=== PATIENT | female | born 1970 | race Caucasian/White ===

== ENCOUNTER → 2017-01-02 | Outpatient (CLI) | payer OTHER | LOC: BMCIMAGING 13:33 | PROVIDERS: ATTEND Obstetrics & Gynecology | DX: Z12.31 Encounter for screening mammogram for malignant neoplasm of breast (principal) | CPT/HCPCS: G0202 ==

== ENCOUNTER 2017-03-02 06:26 | Observation (INO) | payer OTHER ==
--- NOTE | 2017-01-28 12:51 | GHP ---
[f rep st] PREOP HISTORY AND PHYSICAL DATE OF ADMISSION: 03/02/2017 TIME OF SURGERY: 7:15 a.m. SURGERY TO BE PERFORMED: Total laparoscopic hysterectomy, bilateral salpingectomy. PREOPERATIVE DIAGNOSIS: Symptomatic uterine fibroids. HISTORY OF PRESENT ILLNESS: Patient is a 46-year-old, 3, para 2-0-1-2, with an unknown last menstrual because of her Mirena IUD, who was discovered to have a large posterior uterine fibroid w hich has grown in size over the past couple years. Her ultrasound revealed a right intramural uteri ne fibroid that was 7.5 x 5.2 x 6.07 cm. This was discovered on ultrasound as an evaluation after h er Mirena IUD was changed and the insertion was difficult and there was felt to be an obtrusive mass . In retrospect, patient has noted some increasing back and leg pain over the past several years an d feels that she has bulk symptoms in her pelvis which may likely be a result of this increasing siz e of this uterine fibroid. Patient has no episodes of vaginal bleeding. She has had a Mirena IUD f or years and does not have periods, and she denies any other symptoms. We discussed treatment optio ns for uterine fibroids including uterine artery embolization, medical management versus surgical ma nagement. Patient is aware that uterine fibroids can recur and feels that the bulk symptoms are inc reasingly giving her difficulties in her life. She desires to have definitive management with a tot al laparoscopic hysterectomy. We discussed bilateral salpingectomy as well to attempt to prevent an y possible ovarian malignancy in the future without compromising her natural hormones and she agrees to this as well. PAST MEDICAL HISTORY: Only significant for history of depression, bulimia, and OCD. She has been o n Lexapro for many years and feels that her symptoms are well controlled with this. 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 SURGICAL HISTORY: Her only surgical history is the tonsils and adenoidectomy at age 7. PAST OBSTETRICAL HISTORY: She has had 3 pregnancies. In April of 1998, she had a viable female, 7 pounds 11 ounces, vaginal delivery without complication. She had an early miscarriage without a D and C, and then in August of 2001, she had a viable male, 7 pounds, 14 ounces, vaginal delivery wit hout complications. ALLERGIES: She is allergic to penicillin, it gives her hives. MEDICATIONS: Her only medications include Lexapro 10 mg daily, which she has been on for many years . PAST GYNECOLOGICAL HISTORY: She had a normal menarche at age 12-13. She had rather irregular cycle s until her Mirena was placed after the of her son. She does not have any as of now. She had 1 abnormal Pap. Followup Paps were normal. Most recent Pap in November of 2016 was all normal. She h as never had any treatment on her cervix, and she denies any history of any STDs. SOCIAL HISTORY: She is . She lives with her and her son. Her daughter has recently gone to college. They just moved to [place] for approximately 1-2 years. 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 She denies tobacco, alcohol, and drug use. She does have a house at [place] and is coming back f or her surgery. FAMILY HISTORY: Her father had cancer of the nasopharynx. Her mother had a history of CLL. She is adopted, they do not know her family history on that side. Paternal grandfather had colon cancer. Paternal grandmother had of a brain aneurysm in her 40s. No other medical problems and her ch ildren are healthy. REVIEW OF SYSTEMS: Negative except for symptoms as mentioned above in HPI. OBJECTIVE: VITAL SIGNS: Today, her weight is 124 pounds, blood pressure is 104/62. GENERAL: She is a well-developed thin white female in no acute distress. LUNGS: Clear to auscultation bilateral ly. HEART: Regular rate and rhythm. No murmurs. ABDOMEN: Soft, nontender, nondistended. Normal bowel sounds. PELVIC: Normal external genitalia. Normal parous cervix. Mirena IUD strings are v isible at the level of the cervix. Her uterus is bulky and there is a firm fibroid that is palpable on the right side, which does protrude into her sacrum and feels like it is associated with back pa in. ASSESSMENT AND PLAN: A 46-year-old, 3, para 2-0-1-2, with symptomatic uterine fibroids. De sires total laparoscopic hysterectomy and bilateral salpingectomy. Patient was consented for the pr ocedure today. She understood the risks and benefits. The risks including bleeding, infection, dam age to internal organs, tubes, ovaries, bowel, bladder, nerves, blood vessels, ureters, need for ope n procedure, need for additional procedures. She understood these risks and benefits and agreed to proceed. /[id number]/MODL
[2017-03-02] MEDS ORDERED: LIDOCAINE 1% 2 ML INJ ID PRN (06:42)
[2017-03-02] MEDS ORDERED: LR 1,000 ML IV ONE (06:42)
[2017-03-02] MEDS ORDERED: BUPIVACAINE 0.5% 30 ML SDV ONE (07:09)
[2017-03-02] MEDS ORDERED: PROPOFOL/EMULSION 500 MG/50 ML BOTTLE IV ONE ×2 (07:12→09:22)
[2017-03-02] MEDS ORDERED: fentaNYL 100 MCG/2 ML INJ ONE ×3 (07:12→11:02)
[2017-03-02] MEDS ORDERED: MIDAZOLAM 2 MG/2 ML VIAL IVP ONE (07:23)
--- NOTE | 2017-03-02 07:25 | PDANEPAE ---
ANE History of Present Illness 46 year old woman for hysterectomy for fibroids. Otherwise healthy. ANE Past Medical History - Cardiovascular History Hx Hypertension: No Hx Arrhythmias: No Hx Chest Pain: No Hx Coronary Artery / Peripheral Vascular Disease: No Hx CHF / Valvular Disease: No Hx Palpitations: No - Pulmonary History Hx COPD: No Hx Asthma/Reactive Airway Disease: No Hx Recent Upper Respiratory Infection: No Hx Oxygen in Use at Home: No Hx Sleep Apnea: No Sleep Apnea Screening Result - Last Documented: Negative - Neurologic History Hx Cerebrovascular Accident: No Hx Seizures: No Hx Dementia: No Neurologic History Comment: MIGRAINES YRS AGO-MENSTRUAL - Endocrine History Hx Diabetes: No - Renal History Hx Renal Disorders: No - Liver History Hx Hepatic Disorders: No - Neurological & Psychiatric Hx Hx Neurological and Psychiatric Disorders: No - Cancer History Hx Cancer: No - Congenital Disorder History Hx Congenital Disorders: No - GI History Hx Gastrointestinal Disorders: No - Other Health History Other Health History: NEG - Chronic Pain History Chronic Pain: No - Surgical History Prior Surgeries: TONSILLECTOMY. ADENOIDECTOMY ANE Review of Systems Review of Systems: - Exercise capacity METS (RN): 6 METS ANE Patient History - Allergies Allergies/Adverse Reactions: Penicillins Allergy (Intermediate, Verified 12/14/10 11:15) Rash - Home Medications Home Medications: Cetirizine [ZyrTEC 10 mg (*)] 10 mg PO DAILY PRN 03/02/17 [Last Taken Unknown] Escitalopram Oxalate [Lexapro] 10 mg PO DAILY 03/02/17 [Last Taken 03/01/17 07: 00] - NPO status NPO Since - Liquids (Date): 03/01/17 NPO Since - Liquids (Time): 20:30 NPO Since - Solids (Date): 03/01/17 NPO Since - Solids (Time): 18:30 - Smoking Hx Smoking Status: Never smoked - Family Anes Hx Family Hx Anesthesia Complications: NEG ANE Labs/Vital Signs - Vital Signs Blood Pressure: 112/72 Heart Rate: 65 Respiratory Rate: 16 O2 Sat (%): 96 Height: 171.45 cm Weight: 56.699 kg ANE Physical Exam - Airway Mallampati Score: Class 1 - Pulmonary Pulmonary: no respiratory distress - Cardiovascular Cardiovascular: regular rate and rhythym - ASA Status ASA Status: I
[2017-03-02] MEDS ORDERED: CLINDAMYCIN 900 MG/DEXTROSE/50 ML BAG IV ONE (07:41)
[2017-03-02] MEDS ORDERED: CLINDAMYCIN 900 MG/DEXTROSE 50 ML IV ONE (07:41)
[2017-03-02] MEDS ORDERED: NALOXONE HCL 0.4 MG/ML INJ IVP PRN ×2 (08:19→10:39)
[2017-03-02] MEDS ORDERED: HYDROmorphONE/DILAUDID 1 MG/ML INJ IVP PRN (08:19)
[2017-03-02] MEDS ORDERED: OXYCODONE/APAP 5/325 TAB PO PRN (08:19)
[2017-03-02] MEDS ORDERED: PROMETHAZINE HCL 25 MG/ML INJ IVP PRN (08:19)
[2017-03-02] MEDS ORDERED: DEXAMETHASONE 4 MG/ML VIAL IVP PRN (08:19)
[2017-03-02] MEDS ORDERED: LR 500 ML IV PRN (08:19)
[2017-03-02] MEDS ORDERED: LABETALOL HCL 50 MG/10 ML SYR IVP PRN (08:19)
[2017-03-02] MEDS ORDERED: ALBUTEROL 3 ML DEYVIAL IH PRN (08:19)
[2017-03-02] MEDS ORDERED: ACETAMINOPHEN 500 MG TAB PO PRN (08:19)
[2017-03-02] MEDS ORDERED: HYDROCODONE/APAP 5/325 TAB PO PRN (08:19)
[2017-03-02] MEDS ORDERED: LACTULOSE 20 GM/30 ML UDCUP PO PRN (10:38)
[2017-03-02] MEDS ORDERED: POLYETHYLENE GLYCOL 3350 17 GM PKT PO PRN (10:38)
[2017-03-02] MEDS ORDERED: MAGNESIUM HYDROXIDE 30 ML UDCUP PO PRN (10:38)
[2017-03-02] MEDS ORDERED: BISACODYL 10 MG SUPP PR PRN (10:38)
[2017-03-02] MEDS ORDERED: HYDROmorphONE/DILAUDID 6 MG/30 ML PCA IV PRN (10:39)
--- NOTE | 2017-03-02 10:41 | POSTOPPROG ---
Post Op Note Date of Operation: 03/02/17 Surgeon: Veda Ortega Compliance Quality Performance Analyst: Dr Shea Tavarez Anesthesiologist: Dr Dorothy Nuñez Anesthesia: GET(General Endotracheal) Pre-op Diagnosis: symptomatic uterine fibroids Post-op Diagnosis: same Procedure: TLH B salpingectomy Findings: uterus with large subserosal fibroid on right posterior aspect of uterus Inf/Abcess present in the surg proc area at time of surgery?: No Depth: Organ Space EBL: 50-100 Total fluids administered: 2000 Specimen(s): uterus with cervix and bilateral fallopian tubes
--- NOTE | 2017-03-02 10:51 | POSTANESTH ---
Post Anesthetic Evaluation Respiratory Status: Normal, Stable Level of Consciousness/Mental Status: Can Participate in Eval Pain Control: Adequate, Prn Tx Ordered Nausea/Vomiting Control: Adequate, Prn Tx Ordered Complications Possibly Related to Anesthesia: None Noted
[2017-03-02] MEDS ORDERED: LR 1,000 ML IV SCH (11:00)
[2017-03-02] MEDS: fentaNYL 100 MCG/2 ML INJ IVP PRN ×2 (11:03→11:13)
--- NOTE | 2017-03-02 11:58 | GOP ---
[f rep st] OPERATIVE REPORT DATE OF OPERATION: 03/02/2017 SURGEON: Veda Ortega MD CODING CONSULTANT: Shea Tavarez DO ANESTHESIA: General. ANESTHESIOLOGIST: Edyta Nuñez MD. PREOPERATIVE DIAGNOSIS: Symptomatic uterine fibroids. POSTOPERATIVE DIAGNOSIS: Symptomatic uterine fibroids. PROCEDURE PERFORMED: Total laparoscopic hysterectomy, bilateral salpingectomy. FINDINGS: Uterus with large uterine fibroid and bilateral fallopian tubes. These will be sent to Pathology. ESTIMATED BLOOD LOSS: For the procedure was less than 50 cc. INDICATIONS: The patient is a 46-year-old, 3, para 2-0-1-2, who has a Mirena IUD, and therefore, an unknown last menstrual period. She presented as a normal followup to change her Mirena IUD, and during that procedure, there was felt to be obstruction in the uterine cavity and the cavity was distorted by a mass. Pelvic ultrasound revealed a large uterine fibroid to the right intramural aspect of the uterus that was 7.5 x 5.2 x 6.7 cm, was disorientating her uterine cavity. The patient had had a prior ultrasound 2 years prior that showed the fibroid was much smaller, in the 2-3 cm range. The patient began considering her symptoms and she has been having pelvic bulk symptoms and pressure, including back pain and significant right hip pain, which is felt to be likely due to the expanding size of the uterine fibroid. We discussed treatment options and the patient wished to have definitive therapy with a total laparoscopic hysterectomy, bilateral salpingectomy. She was consented for the procedure and understood the risks and benefits, the risks including bleeding, infection, damage to internal organs, ovaries, bowel, bladder, nerves , blood vessels, ureters, need for open procedure, need for additional procedures. She understood these risks and benefits, agreed to proceed. DESCRIPTION OF PROCEDURE: The patient was taken to the operating room where she was placed under general anesthesia without difficulty. She was prepped and draped in the dorsal lithotomy position and a Resendiz catheter was placed in her bladder. An exam under anesthesia revealed a large bulky uterine fibroid that was palpable to the right of her normal uterus and cervix, no other masses. After a WHO time-out was performed, an open-sided speculum was placed in the vagina, and a Bassett tenaculum was used to grasp the anterior lip of the cervix. The uterus sounded to 8 cm, and the cervix was felt to be medium size. The THEE uterine manipulator was then set up with the 8 cm uterine sound and the medium cervical cap. The cervix was progressively dilated with Crane dilators to a #7. The THEE uterine manipulator was gently advanced into the endometrial canal and the balloon was inflated. The tenaculum was then removed and the cervical cap was then advanced around the cervix and uterine manipulator was placed. Attention was then turned to the abdominal portion of the procedure, and after injection of Marcaine, a 5 mm skin incision was then made with a scalpel, and a Veress needle was applied through the peritoneum. Pneumoperitoneum was then created with carbon dioxide gas and a 5 mm atraumatic trocar was placed through that incision under direct visualization. After injection of Marcaine, a 5 mm atraumatic trocar was placed in the right lower quadrant and a 10 mm atraumatic trocar was placed in the left lower quadrant, all under direct visualization without difficulty. Inspection of the pelvis revealed the uterus to have a large fibroid attached to the right aspect of the uterus through the broad ligament distorting the round ligament and the utero-ovarian ligament and the ovary on the right side. The uterus was normal on the left. The tubes and ovaries were normal and the rest of the anatomy was normal. The uterus was then flexed to the right side of the pelvis, and the left fallopian tube was grasped with an atraumatic grasper and dissection of the fimbria and along the mesosalpinx was performed with LigaSure. The fallopian tube was then transected at the level of the cornual region of the uterus and removed through the 10 mm port. The round ligament was then grasped, cauterized and cut, as well as the utero-ovarian ligament and dissection was performed along the cardinal ligaments on the left aspect of the uterus until the uterine vessels were identified and cut after dissection of the broad ligament and creation of the vesicouterine peritoneum and the bladder flap. The bladder was dissected anteriorly. The uterine vessels were identified, cauterized and cut, and along with care to feel the cervical cup around the cervix from the vagina. Attention was then turned to the right side of the uterus where the right fallopian tube was grasped at the fimbriated end. The right fallopian tube was cauterized and cut along the mesosalpinx and transected and removed directly through the 10 mm port. The right aspect of the uterus was distorted by the uterine fibroid, so the utero-ovarian ligament was grasped, cauterized and cut with the LigaSure and the anterior portion of the bladder flap was carried over the fibroid capsule to further identify and transect the tissue laterally. The round ligament was cauterized and cut and the fibroid was shelled out of the broad ligament with direct blunt dissection as well as sharp dissection with care to reflect the ovary and the vessels laterally. We also inspected that side carefully to see the right ureter and make sure that it was properly located in the pelvic wall. The fibroid was then grasped with a tenaculum and care was taken to identify the uterine vessels underneath the fibroid and they were dissected off at the level of the internal cervical os with care to feel the cervical cap for the colpotomy. This was all performed with direct dissection with the LigaSure and good hemostasis was assured. The uterus was then again deflected to the right and the balloon was inflated on the THEE to capture the pneumoperitoneum, and the hook monopolar cautery was used on the LigaSure device to create the colpotomy on the anterior left and posterior sides of the cervix. We had difficulty with the pneumoperitoneum and visualization because of the right fibroid on the right side of the colpotomy. Therefore, we deflated the pneumoperitoneum and converted to a vaginal approach. The weighted speculum and a Campuzano retractor were used for visualization and the cervix was grasped with a tenaculum. There was a small area of the vaginal cuff still attached. This was grasped with a Michael clamp, cut and suture ligated with 0 Vicryl and good hemostasis was assured. The uterus and fibroid were removed in 1 piece vaginally without difficulty. A sterile glove with a lap sponge were then placed vaginally to recreate our pneumoperitoneum and we converted back to laparoscopic approach. The pelvis was copiously irrigated with warm normal saline and there was good hemostasis along all the surgical margins. The vaginal cuff was then closed with the VCare 0 Vicryl barbed suture from right to left with 2 redundant sutures to the midline. This was performed without difficulty and the cuff was closed directly. Inspection of the pelvis again assured hemostasis. The appendix was visualized as well as the liver and the gallbladder. There was normal anatomy throughout the pelvis and the ovaries were retained and were normal and both ureters were visualized peristalsing at the end of the case. The pneumoperitoneum was then allowed to escape. The 1 cm trocar incision fascia was closed with 0 Vicryl and the skin was closed with 4-0 Monocryl on all 3 ports. Steri-Strips were placed. The patient tolerated the procedure well. Sponge, lap, needle, and instrument counts were correct x3. Patient went to the recovery room in good condition. FLUID REPLACEMENT: 2000 cc. URINE OUTPUT: 150 cc. /[id number]/MODL MTDD
[2017-03-02] MEDS: KETOROLAC 30 MG/1 ML SDV IVP PRN ×2 (12:06→18:27)
--- NOTE | 2017-03-02 12:12 | GHP ---
[f rep st] PREOP HISTORY AND PHYSICAL DATE OF ADMISSION: 03/02/2017 ADDENDUM TO PREVIOUSLY DICTATED HISTORY AND PHYSICAL: DATE OF SURGERY: 03/02/2017 PREOPERATIVE DIAGNOSIS: Symptomatic uterine fibroids. PROCEDURE TO BE PERFORMED: Total laparoscopic hysterectomy, bilateral salpingectomy. HISTORY OF PRESENT ILLNESS: The patient is a 46-year-old, 3, para 2-0-1-[address] menstrual period because she has a Mirena IUD, who was discovered to have a large posterior uterin e fibroid which has grown in size over the last few years. Most recent ultrasound revealed a right in tramural uterine fibroid which was 7.5 x 5.2 x 6.7 cm. This was discovered on an ultrasound as an pamella luation for her Mirena IUD because as it was changed the insertion was difficult and was felt to have an obstructive mass. As patient examined is her symptoms, she has had increasing back pain, leg pain over the past several years and bulk symptoms in her pelvis which were likely due to the increasing size of the uterine fibroid. She does not have vaginal bleeding because of her Mirena IUD or other sy mptoms. We discussed treatment options and patient wishes to have a definitive treatment with a total laparoscopic hysterectomy and bilateral salpingectomy. PAST MEDICAL HISTORY: Significant for depression, bulimia and OCD. She has been on Lexapro for many years and is well controlled. PAST SURGICAL HISTORY: A tonsillectomy and adenoids at age 7. PAST OB HISTORY: She has had 3 pregnancies; April 1998, viable female, 7 pounds 11 ounces, vagina l delivery without complication; early miscarriage without D and C; and then in August of 2001, viable male 7 pounds 14 ounces, vaginal delivery without complication. ALLERGIES: Penicillin, it gives her hives. MEDICATIONS: Lexapro 10 mg. PAST GYNECOLOGICAL HISTORY: Normal menarche age 12-13. Irregular menstrual cycles until a Mirena IUD was placed after the of her son. She does not have any cycles as of now. One abnormal Pap. Fol lowup Paps were normal. Most recent Pap was in November of 2016, which was normal. She denies any other h istory of STDs. REVIEW OF SYSTEMS: Negative except as above in HPI. SOCIAL HISTORY: She is . She lives with her and her son and most recently has moved [facility]. She is going to live there 1-2 years. 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 She denies tobacco, alcoho l, and drug use. FAMILY HISTORY: Father had cancer of the nasopharynx. Mother had a history of CLL. She is adopted. Yair vasquez do not know a lot of her family history. OBJECTIVE: VITAL SIGNS: Today, she is afebrile. Vital signs stable. Weight is 124 pounds. GENERAL: S manny is a well-developed, well-nourished, white female in no acute distress. LUNGS: Clear to auscultati on bilaterally. HEART: Regular rate and rhythm. No murmurs. ABDOMEN: Soft, nontender, nondistended. N ormal bowel sounds. PELVIC: Normal external genitalia. Normal parous cervix. Mirena IUD strings are v isible at the level of the cervix. Uterus is bulky and there is a firm fibroid palpable on the right side, protruding anterior sacrum. ASSESSMENT AND PLAN: A 46-year-old 3, para 2-0-1-2, with symptomatic uterine fibroids, giana es total laparoscopic hysterectomy, bilateral salpingectomy. She was consented for the procedure tostu wright. She understood the risks and benefits. The risks including bleeding, infection, damage to internal organs, tubes, ovaries, bowel, bladder, nerves, blood vessels, ureters, need for open procedure, nee d for additional procedures. She understood the risks and benefits, agreed to proceed. /[id number]/MODL
[2017-03-02] MEDS: HYDROCODONE/APAP 5/325 TAB PO PRN ×2 (15:04→19:35)
--- NOTE | 2017-03-02 18:07 | SOAPPROG ---
SOAP Progress Note Assessment/Plan: Assessment: 46 y/o POD 0 s/p TLH B salpingectomy doing well. Plan: October d/c johnson tonight or in am, patient preference. Advance diet and Toradol and Tea prn. Transition to po pain meds in am and anticipate d/c tomorrow. 03/02/17 18:05 Subjective: Pt is doing well today. She has good pain control with Toradol and 1 Tea. She is tolerating reg diet and denies nausea/vomiting. She has been up into a chair and ambulated in the hallway. Objective: Vital Signs Temp Pulse Resp BP Pulse Ox 36.9 C 57 L 18 116/73 94 03/02/17 13:45 03/02/17 13:45 03/02/17 13:45 03/02/17 13:45 03/02/17 13:45 03/01/17 03/02/17 03/03/17 05:59 05:59 05:59 Intake Total 3000 Output Total 920 Balance 2080 - Pending Discharge Pending Discharge Within 24 Hours: Yes Pending Discharge Date: 03/03/17 Pending Discharge Time: 11:00 Physical Exam - Physical Exam General Appearance: WD/WN, alert, no apparent distress Neck: non-tender, full range of motion, supple Respiratory: chest non-tender, lungs clear, normal breath sounds Cardiac/Chest: regular rate, rhythm Abdomen: normal bowel sounds, other (incisions c/d/i) Extremities: swelling (no), Catrina's sign (neg) ICD10 Worksheet Patient Problems: Problems Problem Status Onset S/P laparoscopic hysterectomy Acute - ICD10 Problem Qualifiers (1) S/P laparoscopic hysterectomy
[2017-03-02] MEDS: SENNOSIDES/DOCUSATE SODIUM TAB PO SCH (19:31)
[2017-03-03] MEDS: HYDROCODONE/APAP 5/325 TAB PO PRN ×4 (00:30→13:24)
[2017-03-03] MEDS: KETOROLAC 30 MG/1 ML SDV IVP PRN ×2 (00:30→07:20)
[2017-03-03] MEDS ORDERED: FLU VACC QS 2017-18 (3YR+)/PF 0.5 ML SYR (FLUARIX QUAD) IM ONE ×2 (04:55→04:58)
[2017-03-03 05:23] LABS: % IMMATURE GRANULYOCYTES 0.4 % (0.0-1.1); ABSOLUTE IMMATURE GRANULOCYTES 0.05 10^3/uL (0.00-0.10); ADD DIFF? NO; ADD MORPH? NO; ADD SCAN? NO; ATYPICAL LYMPHOCYTE FLAG 0 (0-99); FRAGMENT RBC FLAG 0 (0-99); HEMOGLOBIN 13.4 g/dL (12.6-16.3); LEFT SHIFT FLG 0 (0-99); LIPEMIA HEMOLYSIS FLAG 90 (0-99); MEAN CELL HEMOGLOBIN CONCENTR. 34.4 g/dL (32.4-36.7); MEAN CELL VOLUME 96.1 fL (81.5-99.8); MEAN PLATELET VOLUME 11.4 fL (8.7-11.7); PLATELET CLUMPS FLAG 0 (0-99); PLATELET COUNT 187 10^3/uL (150-400); RED BLOOD CELL COUNT 4.06 10^6/uL (4.18-5.33); RED CELL DISTRIBUTION WIDTH 12.4 % (11.5-15.2)
[2017-03-03] MEDS: SENNOSIDES/DOCUSATE SODIUM TAB PO SCH (09:16)
[2017-03-03 09:39] VITALS: BP 86/51; PULSE 59; RESP 14; O2SAT 94
--- NOTE | 2017-03-03 10:19 | SOAPPROG ---
SOAP Progress Note Assessment/Plan: Assessment: 46 y/o POD 1 s/p TLH B salpingectomy doing well. Plan: October d/c johnson tonight or in am, patient preference. Advance diet and Toradol and [place] prn. Transition to po pain meds in am and anticipate d/c tomorrow. 03/02/17 18:05 03/03/17 10:19 Pt is doing well on po pain meds. Will d/c home on Ibuprofen, and [place]. Follow-up @ [facility] 2 and 4 weeks. Subjective: Pt doing well this am. She is having some gas pain and distention. She is ambulating and voiding without difficulty and denies bleeding. No nausea/ vomiting and tolerating reg diet. Objective: Vital Signs Temp Pulse Resp BP Pulse Ox 37.3 C 59 L 14 86/51 L 94 03/03/17 09:38 03/03/17 09:38 03/03/17 09:38 03/03/17 09:38 03/03/17 09:38 Laboratory Results 03/03/17 04:53 03/02/17 03/03/17 03/04/17 05:59 05:59 05:59 Intake Total 3000 Output Total 2520 Balance 480 - Pending Discharge Pending Discharge Within 24 Hours: Yes Pending Discharge Within 48 Hours: Yes Pending Discharge Date: 03/04/17 Pending Discharge Time: 11:00 Physical Exam - Physical Exam General Appearance: WD/WN, alert, no apparent distress Neck: non-tender, full range of motion, supple Respiratory: chest non-tender, lungs clear, normal breath sounds Cardiac/Chest: regular rate, rhythm Abdomen: normal bowel sounds, non-tender, soft, other (incisons c/d/i) Extremities: swelling (no), Catrina's sign (neg) ICD10 Worksheet Patient Problems: Problems Problem Status Onset S/P laparoscopic hysterectomy Acute - ICD10 Problem Qualifiers (1) S/P laparoscopic hysterectomy
[2017-03-03] MEDS ORDERED: IBUPROFEN 600 MG TAB PO SCH (10:38)
[2017-03-03] MEDS: SIMETHICONE 80 MG TAB CHEW PO SCH ×2 (10:42→13:27)
[2017-03-03 15:43] VITALS: TEMP 98.7
== END 2017-03-03 14:20 | disposition home or self-care (01) ==
LOC: F3E 06:26 → INTOOBSV 06:26 → EDSTATUS 07:15 → FOB 11:52
PROVIDERS: ADMIT Obstetrics & Gynecology; ATTEND Obstetrics & Gynecology
DX: D25.0 Submucous leiomyoma of uterus (principal); D25.1 Intramural leiomyoma of uterus; N80.0 Endometriosis of uterus
CPT/HCPCS: G0008; G0378; J1885; J2250; J2704; J3010